=== PATIENT | male | born 1995 ===

== ENCOUNTER 2018-04-16 04:29 | Emergency (ER) | payer SELFPAY ==
[2018-04-16 04:43] VITALS: BP 130/81; PULSE 67; RESP 18; TEMP 98.2; O2SAT 98
--- NOTE | 2018-04-16 04:59 | ED PDOC ---
HPI: Abdomen Time Seen by Provider: 04/16/18 04:37 Chief Complaint (Nursing): Abdominal Pain Chief Complaint (Provider): Abdominal Pain History Per: Patient History/Exam Limitations: no limitations Onset/Duration Of Symptoms: Hrs Location Of Pain/Discomfort: RUQ Associated Symptoms: denies: Fever, Nausea, Vomiting, Diarrhea, Constipation Additional Complaint(s): 22 y/o male with no significant past medical history presents to initially complaining of abdominal pain. Patient reports he had some RUQ pain which he experienced after eating buffalo chicken pizza but it has resolved now. Patient states that he is homeless and has no where to go. Denies nausea, vomiting, stool problems, or fever. Past Medical History Reviewed: Historical Data, Nursing Documentation, Vital Signs Vital Signs: Last Vital Signs Temp 98.2 F 04/16/18 04:35 Pulse 67 04/16/18 04:35 Resp 18 04/16/18 04:35 BP 130/81 04/16/18 04:35 Pulse Ox 98 04/16/18 04:35 - Medical History PMH: No Chronic Diseases - Surgical History Surgical History: No Surg Hx - Family History Family History: States: Unknown Family Hx - Allergies Allergies/Adverse Reactions: Allergies Allergy/AdvReac Type Severity Reaction Status Date / Time No Known Allergies Allergy Verified 04/16/18 04:40 Review of Systems ROS Statement: Except As Marked, All Systems Reviewed And Found Negative Constitutional: Negative for: Fever Gastrointestinal: Positive for: Abdominal Pain. Negative for: Nausea, Vomiting, Diarrhea, Constipation Physical Exam - Reviewed Nursing Documentation Reviewed: Yes Vital Signs Reviewed: Yes - Physical Exam Appears: Positive for: Well, Non-toxic, No Acute Distress Head Exam: Positive for: ATRAUMATIC, NORMOCEPHALIC Skin: Positive for: Normal Color, Warm, DRY Eye Exam: Positive for: EOMI, Normal appearance, PERRL ENT: Positive for: Normal ENT Inspection Neck: Positive for: Normal, Painless ROM Cardiovascular/Chest: Positive for: Regular Rate, Rhythm. Negative for: Murmur Respiratory: Positive for: Normal Breath Sounds. Negative for: Respiratory Distress Gastrointestinal/Abdominal: Positive for: Normal Exam, Soft. Negative for: Tenderness Back: Positive for: Normal Inspection. Negative for: L CVA Tenderness, R CVA Tenderness, Vertebral Tenderness Extremity: Positive for: Normal ROM. Negative for: Pedal Edema, Deformity Neurologic/Psych: Positive for: Alert, Oriented. Negative for: Motor/Sensory Deficits - ECG O2 Sat by Pulse Oximetry: 98 (RA) Pulse Ox Interpretation: Normal Medical Decision Making Medical Decision Making: Time: 04:37 A/P: 22 y/o male with resolved abdominal pain and homelessness. Patient resting comfortably in no acute distress. No acute ED intervention necessary at this time. Scribe Attestation: Documented by Frank Aguilar acting as a scribe for Adrián Desai MD. Provider Scribe Attestation: All medical record entries made by the Scribe were at my direction and personally dictated by me. I have reviewed the chart and agree that the record accurately reflects my personal performance of the history, physical exam, medical decision making, and the department course for this patient. I have also personally directed, reviewed, and agree with the discharge instructions and disposition. Disposition - Clinical Impression Clinical Impression: Abdominal discomfort - Patient ED Disposition Is Patient to be Admitted: No - Disposition Referrals: [facility] [Outside] Disposition: Routine/Home Disposition Time: 06:20 Condition: GOOD Instructions: Acute Abdomen (Belly Pain), Adult (DC) Forms: Buzz Referrals ([place])
== END 2018-04-16 06:58 | disposition home or self-care (01) ==
LOC: H.ER 04:29
DX: R10.11 Right upper quadrant pain (principal); Z59.0 Homelessness